=== PATIENT | male | born 1930 | race Two or more races ===

== ENCOUNTER 2016-10-03 17:41 | Emergency (ER) | payer BC ==
[~2016-10-03] VITALS: Ht 172.7 cm; Wt 104.3 kg
[2016-10-03 17:43] VITALS: BP 141/75
[2016-10-04] MEDS ORDERED: FLO4 PO (11:35)
[2016-10-04] MEDS ORDERED: LORAZEPAM0.5 MG PO (11:36)
[2016-10-04] MEDS ORDERED: IBUPROFEN800 MG PO (11:36)
[2016-10-04] MEDS ORDERED: LOVASTATIN40 MG PO (11:36)
[2016-10-04] MEDS ORDERED: NORCO1 TA2 PO (11:37)
[2016-10-04] MEDS ORDERED: TRAMADOL HCL50 MG PO (11:37)
== END 2016-10-03 19:18 | disposition home or self-care (01) ==
LOC: ED 17:41
DX: M25.569 Pain in unspecified knee (principal); M19.90 Unspecified osteoarthritis, unspecified site
CPT/HCPCS: J1885

== ENCOUNTER 2016-10-04 11:15 | Inpatient (IN) | payer BC ==
[~2016-10-04] VITALS: Ht 172.7 cm; Wt 106.6 kg
[2016-10-04] MEDS ORDERED: FLO4 PO (11:35)
[2016-10-04] MEDS ORDERED: LORAZEPAM0.5 MG PO (11:36)
[2016-10-04] MEDS ORDERED: LOVASTATIN40 MG PO (11:36)
[2016-10-04] MEDS ORDERED: IBUPROFEN800 MG PO (11:36)
[2016-10-04] MEDS ORDERED: NORCO1 TA2 PO (11:37)
[2016-10-04] MEDS ORDERED: TRAMADOL HCL50 MG PO (11:37)
[2016-10-04 11:49] LABS: BASOPHIL % 0.4 % (0-2); PLATELET COUNT 231 x10^3mcL (130-400); RED CELL DISTRIBUTION WIDTH 14.5 % (11.5-14.5)
[2016-10-04 11:53] LABS: CALCIUM 8.5 mg/dL (8.5-10.1); CARBON DIOXIDE 22.3 mmol/L (21-32); CHLORIDE SERUM 105 mmol/L (98-107); CREATININE SERUM 1.2 mg/dL (0.7-1.3); GLUCOSE SERUM 121 mg/dL (74-106); POTASSIUM SERUM 4.2 mmol/L (3.5-5.1); SODIUM SERUM 140 mmol/L (136-145)
[2016-10-04 11:57] LABS: ALBUMIN 4.1 g/dL (3.4-5.0); ALKALINE PHOSPHATASE 68 U/L (46-116); ALT/SGPT 33 U/L (16-63); AST/SGOT 19 U/L (15-37); BILIRUBIN TOTAL 0.36 mg/dL (0.20-1.00); CHOLESTEROL 157 mg/dL (<200); TOTAL PROTEIN, SERUM 7.3 g/dL (6.4-8.2)
[2016-10-04 14:09] LABS: CHOLESTEROL/HDL RATIO 3.2
[2016-10-04 14:13] LABS: T3 TOTAL 1.12 ng/mL
[2016-10-04 14:23] LABS: FREE T4 1.09 ng/dL (0.76-1.46); FREE THYROXINE INDEX 3.1 ug/dL (1.4-4.5); T4(THYROXINE) 9.9 ug/dL (4.7-13.3)
[2016-10-04 15:00] VITALS: BP 175/106
[2016-10-04 16:26] VITALS: BP 175/106
[2016-10-04 17:00] VITALS: BP 168/85
[2016-10-04 17:05] VITALS: BP 175/106
[2016-10-04 19:00] LABS: UA SPECIFIC GRAVITY 1.015 (1.005-1.035); microscopic required? YES; urine erythrocyte TRACE (NEGATIVE)
[2016-10-04 19:20] LABS: AMPHETAMINE QUAL UR NONE DETECTED (NEG <=1000)
[2016-10-04 21:25] VITALS: BP 141/65
[2016-10-05 05:40] VITALS: BP 120/54
[2016-10-05 06:39] LABS: BASOPHIL % 0.2 % (0-2); PLATELET COUNT 198 x10^3mcL (130-400)
[2016-10-05 06:42] LABS: CALCIUM 8.3 mg/dL (8.5-10.1); CARBON DIOXIDE 24.7 mmol/L (21-32); CHLORIDE SERUM 108 mmol/L (98-107); CREATININE SERUM 1.2 mg/dL (0.7-1.3); GLUCOSE SERUM 141 mg/dL (74-106); MAGNESIUM 1.8 mg/dL (1.8-2.4); PHOSPHOROUS 3.1 mg/dL (2.5-4.9); POTASSIUM SERUM 4.8 mmol/L (3.5-5.1); SODIUM SERUM 141 mmol/L (136-145)
[2016-10-05 09:34] VITALS: BP 116/58
[2016-10-05 12:51] VITALS: BP 123/63
[2016-10-05 15:57] VITALS: BP 112/52
[2016-10-05 21:53] VITALS: BP 122/63
[2016-10-06 05:41] VITALS: BP 111/67
[2016-10-06 06:37] LABS: PLATELET COUNT 200 x10^3mcL (130-400)
[2016-10-06 06:58] LABS: CALCIUM 8.1 mg/dL (8.5-10.1); CHLORIDE SERUM 111 mmol/L (98-107); CREATININE SERUM 1.5 mg/dL (0.7-1.3); GLUCOSE SERUM 102 mg/dL (74-106); MAGNESIUM 1.8 mg/dL (1.8-2.4); PHOSPHOROUS 3.3 mg/dL (2.5-4.9); POTASSIUM SERUM 4.6 mmol/L (3.5-5.1); SODIUM SERUM 144 mmol/L (136-145)
[2016-10-06 07:00] LABS: BASOPHIL % 0 % (0-2); RED CELL DISTRIBUTION WIDTH 14.7 % (11.5-14.5)
[2016-10-06 09:33] VITALS: BP 124/63
[2016-10-06 17:34] VITALS: BP 143/75
[2016-10-06 22:16] VITALS: BP 181/88
[2016-10-06 23:13] VITALS: BP 174/97
[2016-10-07] VITALS (7 sets, daily range): BP systolic 91–179; BP diastolic 51–91
[2016-10-07 06:27] LABS: BASOPHIL % 0.4 % (0-2); PLATELET COUNT 232 x10^3mcL (130-400); RED CELL DISTRIBUTION WIDTH 14.5 % (11.5-14.5)
[2016-10-07 06:34] LABS: CALCIUM 8.5 mg/dL (8.5-10.1); CHLORIDE SERUM 111 mmol/L (98-107); CREATININE SERUM 1.3 mg/dL (0.7-1.3); GLUCOSE SERUM 109 mg/dL (74-106); MAGNESIUM 1.8 mg/dL (1.8-2.4); PHOSPHOROUS 3.9 mg/dL (2.5-4.9); POTASSIUM SERUM 4.8 mmol/L (3.5-5.1); SODIUM SERUM 144 mmol/L (136-145)
[2016-10-07 16:29] LABS: microscopic required? YES; urine erythrocyte 3+ (NEGATIVE)
[2016-10-08 06:05] LABS: BASOPHIL % 0.4 % (0-2); PLATELET COUNT 205 x10^3mcL (130-400)
[2016-10-08 06:08] VITALS: BP 146/66
[2016-10-08 06:11] LABS: CALCIUM 8.1 mg/dL (8.5-10.1); CARBON DIOXIDE 25.4 mmol/L (21-32); CHLORIDE SERUM 111 mmol/L (98-107); CREATININE SERUM 1.8 mg/dL (0.7-1.3); GLUCOSE SERUM 115 mg/dL (74-106); MAGNESIUM 1.7 mg/dL (1.8-2.4); PHOSPHOROUS 4.6 mg/dL (2.5-4.9); POTASSIUM SERUM 4.9 mmol/L (3.5-5.1); SODIUM SERUM 145 mmol/L (136-145)
[2016-10-08 06:37] LABS: RED CELL DISTRIBUTION WIDTH 14.9 % (11.5-14.5)
[2016-10-08 09:05] VITALS: BP 143/76
[2016-10-08] MEDS ORDERED: FLO4 PO (16:32)
[2016-10-08] MEDS ORDERED: ROB750 PO (16:35)
[2016-10-08] MEDS ORDERED: ZES10 PO (16:36)
[2016-10-08] MEDS ORDERED: ECO81 PO (16:36)
[2016-10-08] MEDS ORDERED: ULT50 PO (16:36)
[2016-10-08] MEDS ORDERED: NEU300 PO (16:37)
[2016-10-08] MEDS ORDERED: PRI20 PO (16:37)
[2016-10-08] MEDS ORDERED: PROS5 PO (16:38)
[2016-10-08] MEDS ORDERED: LEVAQUIN750 MG PO (16:42)
[2016-10-08] MEDS ORDERED: LAC PO (16:43)
[2016-10-08] MEDS ORDERED: FLA500 PO (17:23)
[2016-10-08 17:41] VITALS: BP 169/67
[2016-10-08 18:17] VITALS: BP 169/67
[2016-10-08 21:21] VITALS: BP 138/62
== END 2016-10-08 22:22 | DRG 177 ==
LOC: ED 11:15 → DU 12:59 → MU 12:59 → DU 14:09 → MU 10-05 16:01
PROVIDERS: Family Medicine; Specialist; ADMIT Family Medicine
DX: J69.0 Pneumonitis due to inhalation of food and vomit (principal); J96.00 Acute respiratory failure, unspecified whether with hypoxia or hypercapnia; G92 Toxic encephalopathy; E72.20 Disorder of urea cycle metabolism, unspecified; E87.2 Acidosis; T40.2X5A Adverse effect of other opioids, initial encounter; G89.29 Other chronic pain; M54.9 Dorsalgia, unspecified; I48.91 Unspecified atrial fibrillation; K72.90 Hepatic failure, unspecified without coma; G40.909 Epilepsy, unspecified, not intractable, without status epilepticus; R00.0 Tachycardia, unspecified; N40.1 Benign prostatic hyperplasia with lower urinary tract symptoms; R33.8 Other retention of urine; E78.5 Hyperlipidemia, unspecified; E66.9 Obesity, unspecified; Z68.36 Body mass index [BMI] 36.0-36.9, adult
CPT/HCPCS: 36600; 80307; 83880; 84439; 97116-GP; 97530-GP; G0480; J0360; J1100; J1885; J1940; J2060; J2270; J2543; J7030; J7620; Q0092

== ENCOUNTER 2016-10-28 16:17 | Observation (INO) | payer BC ==
[~2016-10-28] VITALS: Ht 172.7 cm; Wt 107.2 kg
[~2016-10-28 16:17] MED LIST: ECO81 PO; FLA500 PO; FLO4 PO; IBUPROFEN800 MG PO; LAC PO; LEVAQUIN750 MG PO; LORAZEPAM0.5 MG PO; LOVASTATIN40 MG PO; NEU300 PO; NORCO1 TA2 PO; PRI20 PO; PROS5 PO; ROB750 PO; TRAMADOL HCL50 MG PO; ULT50 PO; ZES10 PO
--- NOTE | 2016-10-28 16:31 | NUR ---
PER PARAMEDICS PT BROUGHT IN FROM [facility] FOR INCREASED ALOC. TRANSFERRING MD POTTS. PT ARRIVES ALERT AND ORIENTED TO NAME AT THIS TIME. ABLE TO FOLLOW COMMANDS AND ANSWER BASIC QUESTIONS. RECENTLY DIAGNOSED WITH ASPIRATION PNA AND UTI AND CURRENTLY TAKING LEVAQUIN FOR TREATMENT. BS PER EMS 120. TEMP AT FACILITY 100.1 AND GIVEN TYLENOL. UPON ARRIVAL PATIENT IS AFEBRILE. CONNECTED TO LANDSCAPER AND 02 2 LITERS N/C WITHOUT S/S DISTRESS AT THIS TIME. AWAITING MD HOWARD
--- NOTE | 2016-10-28 16:49 | NUR ---
LAB AT BEDSIDE
--- NOTE | 2016-10-28 17:07 | NUR ---
FAMILY AT BEDSIDE
[2016-10-28 17:13] LABS: UA SPECIFIC GRAVITY <=1.005 (1.005-1.035); microscopic required? YES; urine erythrocyte TRACE (NEGATIVE)
[2016-10-28 17:15] LABS: BASOPHIL % 0.1 % (0-2); PLATELET COUNT 377 x10^3mcL (130-400); RED CELL DISTRIBUTION WIDTH 13.2 % (11.5-14.5)
[2016-10-28 17:33] LABS: ALKALINE PHOSPHATASE 92 U/L (46-116); ALT/SGPT 24 U/L (16-63); AST/SGOT 22 U/L (15-37); CALCIUM 8.8 mg/dL (8.5-10.1); CARBON DIOXIDE 24.5 mmol/L (21-32); CHLORIDE SERUM 106 mmol/L (98-107); CREATININE SERUM 2.9 mg/dL (0.7-1.3); GLUCOSE SERUM 107 mg/dL (74-106); SODIUM SERUM 139 mmol/L (136-145); TOTAL PROTEIN, SERUM 7.3 g/dL (6.4-8.2)
[2016-10-28 17:34] LABS: ALBUMIN 2.8 g/dL (3.4-5.0)
[2016-10-28 17:38] LABS: POTASSIUM SERUM 6.5 mmol/L (3.5-5.1)
[2016-10-28 17:47] LABS: CK-MB 1.7 ng/mL (0-3.6)
[2016-10-28] MEDS ORDERED: MOT800 PO (17:59)
--- NOTE | 2016-10-28 19:30 | NUR ---
RECEIVED PT FROM DAY NURSE. PT FAMILY AT BEDSIDE EXPRESSING CONCERN THAT PT IS BECOMING MORE ALTERED. PT NOTED TO BE POINTING IN AIR AND SHAKING OCCASSIONALLY. PT ALSO MAKING NON-SENSICAL STATEMENTS. RESP EVEN AND UNLABORED, 2LT NC. VS STABLE.
--- NOTE | 2016-10-28 19:31 | NUR ---
RECEIVED PT FROM NIGHT NURSE. PT IN STABLE CONDITION. RESP EVEN AND UNLABORED, RA. VS STABLE. PT AT BEDSIDE
--- NOTE | 2016-10-28 19:35 | NUR ---
DR SALAS AT BEDSIDE SPEAKING WITH PT FAMILY
[2016-10-28 20:14] LABS: CHOLESTEROL/HDL RATIO 2.2
[2016-10-28 20:24] LABS: FREE THYROXINE INDEX 3.1 ug/dL (1.4-4.5); T4(THYROXINE) 8.5 ug/dL (4.7-13.3)
--- NOTE | 2016-10-28 20:48 | NUR ---
DR KENDRICK AT BEDSIDE SPEAKING WITH PT
--- NOTE | 2016-10-28 21:46 | NUR ---
LEWIS CATH ESTABLISHED WITH STERILE TECHNIQUE PER DR AGUILERA
[2016-10-28 22:47] LABS: CALCIUM 8.8 mg/dL (8.5-10.1); CARBON DIOXIDE 28.3 mmol/L (21-32); CHLORIDE SERUM 107 mmol/L (98-107); CREATININE SERUM 2.8 mg/dL (0.7-1.3); GLUCOSE SERUM 133 mg/dL (74-106); SODIUM SERUM 138 mmol/L (136-145)
[2016-10-28 22:55] LABS: POTASSIUM SERUM 5.7 mmol/L (3.5-5.1)
--- NOTE | 2016-10-28 23:19 | NUR ---
PT SLEEPING AT THIS TIME. RESP EVEN AND UNLABORED, 2LT NC. VS STABLE. NAD NOTED. PT CARE ENDORSED TO GIOVANY SAUER FOR CONTINUITY OF CARE
--- NOTE | 2016-10-28 23:25 | NUR ---
REC'D REPORT FROM DONTAE SAUER. I WILL BE ASSUMING CARE OF PT. PT IS CURRENTLY ASLEEP ON GURNEY IN POSITION OF COMFORT. RESPS EVEN AND UNLABORED. VSS. WILL CONT TO MONITOR.
--- NOTE | 2016-10-29 00:29 | NUR ---
REPORT GIVEN TO FANY SAUER TO ASSUME CARE OF PT ON TELE.
--- NOTE | 2016-10-29 00:48 | NUR ---
Pt RECEIVED VIA [employer] IN COMPANY OF ER NURSE. DURING ADMIT Pt IS A/O X1 SOMEWHAT AGITATED, PLACED ON TELE #8 WITH A-FIB HR 107. TEMP 97.2 B/P 133/66 HR 92 PULSE OX 96% 2L/NC. Pt ARRIVED WITH LEWIS CATH PATENT WITH YELLOW URINE. X1 LARGE SOFT BOWEL MOVEMENT. CLEANED MADE COMFORTABLE IN BED. CALL LIGHT WITHIN REACH. BED ALARM IN PLACE. WILL CONTINUE TO MONITOR.
--- NOTE | 2016-10-29 00:52 | NUR ---
PT TRANSFERRED TO TELE
[2016-10-29 01:10] VITALS: BP 133/66
[2016-10-29 01:14] VITALS: Ht 172.7 cm; Wt 107.2 kg
--- NOTE | 2016-10-29 02:34 | NUR ---
Pt RESTING QUIETLY. CALL LIGHT WITHIN REACH. WILL CONTINUE TO MONITOR.
--- NOTE | 2016-10-29 04:14 | NUR ---
NEW IV SITE STARTED TO RFA. MEDICATED WITH NORCO FOR LOWER BACK PAIN/SPASMS, Pt UNABLE TO RATE PAIN. WILL CONTINUE TO MONITOR.
--- NOTE | 2016-10-29 04:20 | NUR ---
AWARE OF Pt HAVING A-FIB WITH HR 107.
--- NOTE | 2016-10-29 05:19 | NUR ---
NO SIGNIFICANT CHANGES NOTED OVER NIGHT. Pt REMAINS A/O X1, CONFUSED BUT COOPERATIVE WITH CARE. HAD A TOTAL OF 4 LARGE BOWEL MOVEMENTS. LEWIS CATH PATENT. NORCO EFFECTIVE FOR LOW BACK PAIN. Pt IS NOW RESTING QUIETLY. SAFETY AND COMFORT MEASURES REMAIN IN PLACE. WILL CONTINUE TO MONITOR.
--- NOTE | 2016-10-29 05:31 | NUR ---
RECEIVED A PHONE CALL FROM Pt'S SON RAMO REGARDING Pt's STATUS. STATES HE WILL BRING A LIST OF HIS MEDICATION SOMETIME AROUND 1400 TODAY.
--- NOTE | 2016-10-29 06:01 | NUR ---
RECEIVED PHONE CALL FROM SON/JD REGARDING FATHER's CONDITION.
[2016-10-29 06:14] LABS: BASOPHIL % 0.1 % (0-2); PLATELET COUNT 352 x10^3mcL (130-400); RED CELL DISTRIBUTION WIDTH 13.6 % (11.5-14.5)
[2016-10-29 06:23] LABS: CALCIUM 8.3 mg/dL (8.5-10.1); CARBON DIOXIDE 24.8 mmol/L (21-32); CHLORIDE SERUM 112 mmol/L (98-107); CREATININE SERUM 2.4 mg/dL (0.7-1.3); GLUCOSE SERUM 111 mg/dL (74-106); MAGNESIUM 1.6 mg/dL (1.8-2.4); PHOSPHOROUS 4.6 mg/dL (2.5-4.9); POTASSIUM SERUM 5.2 mmol/L (3.5-5.1); SODIUM SERUM 147 mmol/L (136-145)
--- NOTE | 2016-10-29 06:58 | NUR ---
PAGEGATED WITH RESULT OF MAG 1.6. WILL ENDORSE INCOMING NURSE TO FOLLOW UP.
--- NOTE | 2016-10-29 07:10 | NUR ---
REASSESSMENT DONE. PT ORIENTED TO SELF AND PLACE. SPEECH SLIGHT GARBLED. COOPERATIVE OF CARE. PT ON TELE A-FIB ON MONITOR. PT ON 2LNC, CLEAR BREATH SOUNDS THROUGHTOUT. PALPABLE PULSES TO ALL EXTREMITIES. LEWIS CATH IN PLACE, CLEAR YELLOW URINE IN COLLECTING BAG 200ML. GENERALIZED WEAKNESS. IV INFUSING WELL TO RFA NS AT 150ML/HR. BED IN LOW POSITION, CALL LIGHT WITHIN REACH. WILL CONTINUE TO MONITOR.
[2016-10-29 07:22] VITALS: BP 144/68
[2016-10-29 10:14] VITALS: BP 98/47
[2016-10-29 10:29] LABS: T3 TOTAL 0.88 ng/mL
--- NOTE | 2016-10-29 12:25 | NUR ---
PERFORMED LEWIS CATHETER CARE. PT TOLERATED WELL. NO DISTRESS AT MOMENT. BED IN LOW POSITION, CALL LIGHT WITHIN REACH.
[2016-10-29 14:06] VITALS: BP 125/43
--- NOTE | 2016-10-29 17:25 | NUR ---
PT C/O BACK PAIN 01/19. MEDICATED PER EMAR. PT TOLERATED WELL. SET UP DINNER TRAY. PT TOLERATING WELL. CALL LIGHT WITHIN REACH.
[2016-10-29 18:01] VITALS: BP 140/81
--- NOTE | 2016-10-29 19:40 | NUR ---
RECEIVED PATIENT IN BED AWAKE WITH NO SIGN OF ACUTE RESPIRATORY DISTRESS NOTED. ON O2 AT 2L VIA NC. FAMILY MEMBERS AT BEDSIDE. LUNGS CLEAR SATTING AT 96%. TELE# 8 AFIB ON MONITOR. LEWIS TO GRAVITY WITH YELLOW URINE OUTPUT. IV TO RFA INTACT AND INFUSING WELL. WILL CONTINUE TO MONITOR. BED ALARM ON. CALL LIGHT WITHIN REACH.
[2016-10-29 20:53] VITALS: BP 134/66
--- NOTE | 2016-10-30 02:01 | NUR ---
SLEEPING THIS TIME BREATHING EASY AND NONLABOR. WILL CONTINUE TO MONITOR, BED ALARM ON.
--- NOTE | 2016-10-30 05:10 | NUR ---
AWAKE C/O BACKPAIN MEDICATED WITH NORCO 1 TAB PO PRESCRIBED. WILL CONTINUE TO MONITOR.
[2016-10-30 05:34] VITALS: BP 133/71
--- NOTE | 2016-10-30 05:59 | NUR ---
PATIENT STILL C/O PAIN MORPHINE 2MG IVP GIVEN PRESCRIBED.
[2016-10-30 06:25] LABS: BASOPHIL % 0.3 % (0-2); PLATELET COUNT 306 x10^3mcL (130-400); RED CELL DISTRIBUTION WIDTH 13.4 % (11.5-14.5)
[2016-10-30 06:26] LABS: CALCIUM 8.7 mg/dL (8.5-10.1); CARBON DIOXIDE 25.9 mmol/L (21-32); CHLORIDE SERUM 110 mmol/L (98-107); CREATININE SERUM 1.6 mg/dL (0.7-1.3); GLUCOSE SERUM 96 mg/dL (74-106); MAGNESIUM 2.1 mg/dL (1.8-2.4); SODIUM SERUM 144 mmol/L (136-145); URIC ACID 7.7 mg/dL (3.5-7.2)
--- NOTE | 2016-10-30 07:10 | NUR ---
BEDSIDE REPORT RECEIVED FROM [facility] SHIFT NURSE AT THIS TIME. PATIENT ASLEEP, EASILY AROUSED VIA VERBAL STIMULI. NO SIGNS OF DISTRESS NOTED, WILL CONTINUE TO MONITOR.
[2016-10-30 07:30] VITALS: BP 119/45
--- NOTE | 2016-10-30 07:30 | NUR ---
PATIENT AWAKE, ALERT, NO SIGNS OF DISTRESS NOTED, TELE# 8. SCD'S IN PLACE, PLACED ON ROOM AIR AT THIS TIME, SPO2 91%. LEWIS CATHETER IN PLACE TO GRAVITY WITH YELLOW COLORED URINE. PATIENT ABLE TO TURN AND REPOSITION SELF IN BED BUT HAD DIFFICULTY SITTING UP IN BED, ASSISTED WITH X2 PERSONS TO EDGE OF BED, PATIENT ABLE TO SAFELY SIT UP TO EAT BREAKFAST, NO DEFICTS NOTED WHILE EATING. 1/2 NS INFUSING TO RFA AT 100 ML/HR, NO REDNESS OR INFILTRATION NOTED, ALL SAFETY MEASURES IN PLACE, WILL CONTINUE TO MONITOR.
[2016-10-30 09:55] VITALS: BP 133/74
[2016-10-30 13:00] VITALS: BP 159/70
--- NOTE | 2016-10-30 13:27 | NUR ---
DR ALEMAN AT BEDSIDE TO ASSESS PATIENT AT THIS TIME. ALL QUESTIONS AND CONCERNS ADDRESSED, WILL CONTINUE TO MONITOR.
--- NOTE | 2016-10-30 13:32 | NUR ---
PATIENT SALINE LOCKED AT THIS TIME PER MD ORDER.
--- NOTE | 2016-10-30 14:36 | NUR ---
P.T. NOTES/INITIAL EVAL [id number] [facility] LE:NO DVT; CT HEAD:(-) Pt LIVES IN 1-MINDY HOUSE W/ , AMBULATORY W/ FWW, ABLE TO DRIVE, RETIRED HOGUE; RECENTLY IN SNF; STATES HE FELL IN FACILITY. S: Pt WAS SEEN AWAKE & ALERT IN BED, SPEAKS MAURITANIAN/ETHIOPIAN; ORIENTED x3, ABLE TO FOLLOW COMMANDS, AGREEABLE & COOPERATIVE W/ P.T.; DEMO BACK PAIN (ONGOING) (P.S.11/19), PRE MEDICATED; NO C/O DIZZINESS AT THIS TIME; WANTS TO GO HOME. O: BED MOBILITY: INDEP IN SUPINE TO SIT, LOGROLL TECH TRANSFERS: MOD ASSIST IN SIT TO STAND W/ FWW GAIT: MOD ASSIST+2 PERSONS W/ FWW X 32 FT, FOLLOWED W/ CHAIR FOR SAFETY, IV POLE IN TOW, KNEES TEND TO BUCKLE, LOST BALANCE x1 EPISODE, ABLE TO REGAIN BALANCE W/ ASSIST, UNABLE TO AMBU FARTHER DUE TO WEAKNESS, FATIGUE, INC UNSTEADINESS, PAIN Pt ASSISTED TO BED SAFELY; HOB ELEVATED, CALL DUNN, PHONE, TABLE IN REACH; BED ALARM ON; SCDs RE APPLIED; F/C INTACT; APPRECIATIVE; ON ROOM AIR. A:Pt DEMO GOOD RESPONSE TO P.T. SESSION; FALL RISK, WADDLING GAIT, TENDS TO PLACE FWW TOO FAR AHEAD; REDUCED PACE GAIT; Pt EDUC ON SAFE GAIT, HEP, USE OF CALL LIGHT FOR NURSE ASSIST, HAND PLACEMENT FOR SAFE TRANSFERS, NEEDS REINFORCEMENT, FAIR FOLLOW THRU; BP= 143/74, HR=86, O2 SAT ROOM AIR=96% P:CONT PT ONCE DAILY 6X/WK X 1 WK; POC & DX DISCUSSED W/ ANALYTICAL LAB ANALYST; WILL BENEFIT W/ P.T. AFTER ACUTE STAY PRIOR TO RETURNING HOME W/ . [id number],2PA GCODES:[id number] [facility] REACH SCORE:20 inches [id number] Pt WAS GIVEN THERA EXER UE/LE X 10 REPS; CONT PT EX8
[2016-10-30 14:48] VITALS: BP 159/70
[2016-10-30] MEDS ORDERED: MOT400 PO (14:52)
--- NOTE | 2016-10-30 14:52 | NUR ---
DR DECKER IN TO ASSESS PATIENT AT THIS TIME. PATIENT AWAKE, ALERT, PATIENT MADE AWARE OF DISCHARGE HOME WITH LEWIS CATHETER AND TO FOLLOW UP WITH DR DE LA GARZA IN TWO WEEKS. PATIENT VERBALIZED UNDERSTANDING, WILL CONTINUE TO MONITOR.
--- NOTE | 2016-10-30 16:05 | NUR ---
DISCHARGE TEACHING PROVIDED AT THIS TIME. PATIENT AWAKE, ALERT, NO SIGNS OF DISTRESS NOTED, SON, AND FRIEND AT BEDSIDE. MIRNA EDUCATED ON LEWIS USE AND CLEANING OF CATHETER, RETURN DEMONSTRATION PROVIDED. PAPERWORK SIGNED BY MIRNA, ISHAAN CASTILLO'D, TELE RETURNED TO TYPESETTING MACHINE OPERATOR/TENDER, WILL NOTIFY NURSE AID AMBER.
[2016-10-31] MEDS ORDERED: FLO4 PO ×2 (14:43→16:02)
[2016-10-31] MEDS ORDERED: PRI20 PO ×2 (14:43→15:22)
[2016-10-31] MEDS ORDERED: PROS5 PO ×2 (14:43→14:44)
[2016-10-31] MEDS ORDERED: ZES10 PO ×2 (14:43→14:44)
[2016-10-31] MEDS ORDERED: LOVASTATIN40 MG PO (14:43)
[2016-10-31] MEDS ORDERED: NEU300 PO ×2 (14:43→14:44)
== END 2016-10-30 16:20 | disposition home health service (06) | DRG 725 ==
LOC: ED 16:17 → DU 10-29 00:04
PROVIDERS: Emergency Medicine; Family Medicine; ADMIT Family Medicine
DX: N40.1 Benign prostatic hyperplasia with lower urinary tract symptoms (principal); N17.0 Acute kidney failure with tubular necrosis; G93.41 Metabolic encephalopathy; N13.8 Other obstructive and reflux uropathy; R33.8 Other retention of urine; E79.0 Hyperuricemia without signs of inflammatory arthritis and tophaceous disease; R31.0 Gross hematuria; E87.5 Hyperkalemia; I16.0 Hypertensive urgency; I12.9 Hypertensive chronic kidney disease with stage 1 through stage 4 chronic kidney disease, or unspecified chronic kidney disease; N18.3 Chronic kidney disease, stage 3 (moderate); M54.9 Dorsalgia, unspecified; G89.29 Other chronic pain; K21.9 Gastro-esophageal reflux disease without esophagitis; E78.5 Hyperlipidemia, unspecified; Z68.36 Body mass index [BMI] 36.0-36.9, adult
CPT/HCPCS: 82962; 83880; 84439; 97110-GP; G0378; J0610; J1815; J2270; J3475; J3490; J7030; J7042; Q0092

== ENCOUNTER 2016-11-03 19:47 | Observation (INO) | payer BC ==
[~2016-11-03] VITALS: Ht 172.7 cm; Wt 98.1 kg
[~2016-11-03 19:47] MED LIST changes: +MOT400 PO; +MOT800 PO
[2016-11-03 20:52] LABS: PLATELET COUNT 322 x10^3mcL (130-400); RED CELL DISTRIBUTION WIDTH 13.6 % (11.5-14.5)
[2016-11-03 20:56] LABS: CARBON DIOXIDE 25.7 mmol/L (21-32); CHLORIDE SERUM 104 mmol/L (98-107); CREATININE SERUM 1.5 mg/dL (0.7-1.3); GLUCOSE SERUM 130 mg/dL (74-106); POTASSIUM SERUM 4.3 mmol/L (3.5-5.1); SODIUM SERUM 139 mmol/L (136-145)
[2016-11-03 21:06] LABS: ALKALINE PHOSPHATASE 88 U/L (46-116); ALT/SGPT 26 U/L (16-63); AST/SGOT 22 U/L (15-37); BILIRUBIN TOTAL 0.4 mg/dL (0.20-1.00); TOTAL PROTEIN, SERUM 6.8 g/dL (6.4-8.2)
[2016-11-03 21:08] LABS: ALBUMIN 2.5 g/dL (3.4-5.0)
[2016-11-03 21:27] LABS: BAND NEUTROPHIL 0 % (0-10); BASOPHIL 0 % (0-2); MONOCYTE 2 % (0-7); SEGMENTED NEUTROPHILS 95 % (37-75)
[2016-11-03 21:28] LABS: PLATELET MORPHOLOGY PLATELETS NORMAL; rbc morphology (normal/abnorm) NORMAL (NORMAL)
[2016-11-03 21:46] LABS: CK-MB 0.6 ng/mL (0-3.6)
[2016-11-04] MEDS ORDERED: UNABLE TO OBTAIN (00:34)
[2016-11-04 02:04] VITALS: BP 128/62
[2016-11-04 06:11] VITALS: BP 136/64
[2016-11-04 07:10] LABS: BASOPHIL % 0.1 % (0-2); PLATELET COUNT 314 x10^3mcL (130-400)
[2016-11-04 07:31] LABS: CARBON DIOXIDE 25.6 mmol/L (21-32); CHLORIDE SERUM 104 mmol/L (98-107); CREATININE SERUM 1.4 mg/dL (0.7-1.3); GLUCOSE SERUM 112 mg/dL (74-106); POTASSIUM SERUM 3.9 mmol/L (3.5-5.1); SODIUM SERUM 137 mmol/L (136-145)
[2016-11-04 07:46] LABS: FREE T4 1.4 ng/dL (0.76-1.46); FREE THYROXINE INDEX 3.2 ug/dL (1.4-4.5); T4(THYROXINE) 8.2 ug/dL (4.7-13.3)
[2016-11-04 09:33] LABS: T3 TOTAL 0.74 ng/mL
[2016-11-04 10:31] VITALS: BP 139/65
[2016-11-04] MEDS ORDERED: MAC100 PO (16:28)
[2016-11-04] MEDS ORDERED: LAC PO (16:28)
[2016-11-04 16:43] VITALS: BP 139/65
== END 2016-11-04 17:26 | disposition home health service (06) | DRG 689 ==
LOC: ED 19:47 → DU 23:29
PROVIDERS: Emergency Medicine; ADMIT Family Medicine
DX: N39.0 Urinary tract infection, site not specified (principal); N17.0 Acute kidney failure with tubular necrosis; E43 Unspecified severe protein-calorie malnutrition; D68.69 Other thrombophilia; R55 Syncope and collapse; N40.1 Benign prostatic hyperplasia with lower urinary tract symptoms; N13.8 Other obstructive and reflux uropathy; R33.8 Other retention of urine; I12.9 Hypertensive chronic kidney disease with stage 1 through stage 4 chronic kidney disease, or unspecified chronic kidney disease; N18.3 Chronic kidney disease, stage 3 (moderate); K21.9 Gastro-esophageal reflux disease without esophagitis; E11.65 Type 2 diabetes mellitus with hyperglycemia; E11.51 Type 2 diabetes mellitus with diabetic peripheral angiopathy without gangrene; D64.9 Anemia, unspecified; E78.5 Hyperlipidemia, unspecified; Z68.36 Body mass index [BMI] 36.0-36.9, adult
CPT/HCPCS: 83880; 84439; G0378; J0696; J7030; Q0092

== ENCOUNTER 2016-11-06 06:05 | Emergency (ER) | payer BC ==
[~2016-11-06] VITALS: Ht 172.7 cm; Wt 104.3 kg
[~2016-11-06 06:05] MED LIST changes: +MAC100 PO; +UNABLE TO OBTAIN
[2016-11-06 09:02] LABS: UA SPECIFIC GRAVITY <=1.005 (1.005-1.035); microscopic required? YES; urine erythrocyte 2+ (NEGATIVE)
[2016-11-06 09:34] VITALS: BP 137/84
== END 2016-11-06 09:34 | disposition home or self-care (01) ==
LOC: ED 06:05
PROVIDERS: Specialist
DX: T83.098A Other mechanical complication of other urinary catheter, initial encounter (principal); R33.9 Retention of urine, unspecified; E78.00 Pure hypercholesterolemia, unspecified; E66.9 Obesity, unspecified; G89.29 Other chronic pain; M54.9 Dorsalgia, unspecified; Y92.89 Other specified places as the place of occurrence of the external cause